=== PATIENT | male | born 1955 | race Caucasian/White ===

== ENCOUNTER 2016-06-28 11:57 | Inpatient (IN) | payer OTHER ==
--- NOTE | ~2016-06-28 | DS ---
Discharge Summary [facility] [address] [place]. [address] NAME: BALWINDER GARY : 57 STATUS : DIS IN PAT#: [id number] AGE: 61 ADM/REG DATE : 06/28/16 MR#: [id number] REPORT SERV DATE: 07/02/16 DICTATED BY: LOVE GIRON DATE: 07/01/16 REPORT STATUS : Draft TRANSCRIBED BY: MODL DATE: 07/01/16 ADMISSION DATE: 06/28/2016 DISCHARGE DATE: 07/01/2016 PRINCIPAL DIAGNOSIS: Venous stasis dermatitis bilaterally with associated cellulitis and streptococcal bacteremia. SECONDARY DIAGNOSES: Acute on chronic congestive heart failure; atrial fibrillation with rapid ventricular response, unresponsive to medical therapy; acute kidney injury; anemia of chronic disease; and chronic low back pain. HISTORY OF PRESENT ILLNESS: Please see my dictation, 06/28/2016. HOSPITAL COURSE: Admitted with severe stasis dermatitis due to the patient's medication regimen in upright positioning. He was placed supine, placed on diuretic drip with excellent diuresis. Erythema and tenderness had improved. He was given antibiotics initially, which we continued as blood culture was positive for Streptococcus. He had complete loss of the epithelial layer, independent of cellulitis. Bacteremia was possible. In the meantime, he had issues with atrial fibrillation with rapid ventricular response, seen by Cardiology. Sotalol had failed, but he was changed this over to amiodarone and actually underwent a DC cardioversion with a transesophageal echocardiography. No vegetations were seen in a BRIE. He was cardioverted successfully. Sotalol was discontinued with amiodarone to replace it. His Lasix drip was also discontinued as the diuresis had improved, and he was transitioned over to Demadex continuing potassium and magnesium. He had PICC line placed and was seen by Infectious Disease regarding his bacteremia. Ceftriaxone had been given here, but it was changed over to Ancef to be given as an outpatient to complete 2 weeks' course of therapy after which, he would follow up with Dr. Tj Medina in 1-[address] Abdoul Fine as scheduled. RSM/FELICIA Love Giron M.D. / [id number] CC: Carmelo Long M.D. Gregory Keith Bruce, M.D.
--- NOTE | ~2016-06-28 | CN ---
Consultation Report [facility] [address] [place]. [address] NAME: BALWINDER COLORADO : 57 STATUS : ADM IN PAT#: [id number] AGE: 61 ADM/REG DATE : 06/28/16 MR#: [id number] REPORT SERV DATE: 06/29/16 DICTATED BY: CELESTINE JONES DATE: 06/28/16 REPORT STATUS : Draft TRANSCRIBED BY: MODL DATE: 06/28/16 CONSULTATION DATE OF CONSULTATION: 06/28/2016 REASON FOR CONSULTATION: This is in regard to atrial fibrillation with rapid ventricular response. HISTORY OF PRESENT ILLNESS: Mr. Colorado is a pleasant 61-year-old gentleman, who sees Dr. Kuldeep Hernandez as his primary balance sheet analyst. He was admitted with complaints of right foot swelling and was noted to be in atrial fibrillation with rapid ventricular response. The patient has a known history of paroxysmal atrial fibrillation and atrial flutter and has been maintained in sinus rhythm on sotalol 80 mg twice a day. His medical history is rather complicated and includes chronic cellulitis of his right and left lower extremities, but does not appear to involve the feet on either side. He has been treated at the [facility]. He is denying any chest pain. He denies profound shortness of breath. He denies PND or orthopnea. PAST MEDICAL HISTORY: 1. Notable for history of coronary artery disease with three-vessel diffuse disease, poor distal targets, not felt to be a good candidate for bypass operation. 2. Paroxysmal atrial fibrillation and atrial flutter, had been maintained on sotalol 80 mg twice a day. 3. Chronic cellulitis involving both lower extremities between his knee and ankle on both sides, treated in the wound center. 4. History of an ischemic cardiomyopathy, ejection fraction of 40%, treated with carvedilol, Lasix, lisinopril. 5. Hypertension, treated with carvedilol and amlodipine. FAMILY HISTORY: Negative for premature coronary artery disease or sudden cardiac . SOCIAL HISTORY: Negative for tobacco or alcohol. REVIEW OF SYSTEMS: As noted above. All other systems reviewed and negative. Note that the patient specifically denies chest pain, PND, orthopnea, pedal edema and denies palpitations. PHYSICAL EXAMINATION: VITAL SIGNS: His blood pressure is 101/60, his pulse is 140, irregularly irregular, in atrial fibrillation, respirations of 16. GENERAL: Well developed, well nourished. HEENT: No icterus. Good dentition. Consultation Report [facility] [address] [place]. [address] NAME: BALWINDER COLORADO : 57 STATUS : ADM IN PAT#: [id number] AGE: 61 ADM/REG DATE : 06/28/16 MR#: [id number] REPORT SERV DATE: 06/29/16 DICTATED BY: CELESTINE JONES DATE: 06/28/16 REPORT STATUS : Draft TRANSCRIBED BY: FELICIA DATE: 06/28/16 NECK: Supple. No masses or thyromegaly LUNGS: Breathing comfortably. No rales or wheezes. CARDIAC: He has a rapid irregularly irregular rhythm. ABD: Soft, nondistended, nontender, no hepatosplenomegaly. EXTREMITIES: He has denuded skin between his knees and ankles and both lower extremities. Very erythematous. His right foot is mildly swollen, nontender. No swelling in his left foot. SKIN: Warm and dry. No visible lesions. MS: Chest wall without deformity, no obvious clavicular fractures. NEURO/PSYCH: Oriented X3. No anxiety or depression. DIAGNOSTIC STUDIES: EKG demonstrates atrial fibrillation with rapid ventricular response, leftward axis. Normal QRS and QT intervals. No evidence for ischemia infarction or chamber hypertrophy. Chest x-ray without pulmonary vascular congestion. IMPRESSION: 1. The patient admitted with complaints of right foot swelling, not clear that this is related to congestive heart failure. His lower extremities appear to be involved with a chronic cellulitis, which has been treated in the wound center. The patient notes that the cellulitis is about the same as it has been in the past. This is being evaluated by the Hospitalist Service. 2. However, it was not certain that the patient has acute on chronic congestive heart failure. He does have a chronic LV systolic dysfunction with ejection fraction noted to be 40%. He is breathing comfortably. He has no PND or orthopnea. His chest x-ray is without pulmonary vascular congestion. He has a baseline creatinine of less than 1 and his current creatinine is over 2 and this potentially could be pre-renal. He was started on an IV Lasix drip. I would recommend checking BNP to see if this is severely elevated. I would consider discontinuing the IV Lasix unless there is clear evidence for acute on chronic congestive heart failure. 3. Atrial fibrillation with rapid ventricular response. He has paroxysmal atrial fibrillation and atrial flutter. We are going to discontinue his sotalol specially in the setting of renal insufficiency. He was started on IV amiodarone. I will also start p.o. amiodarone. I would consider him for cardioversion. His warfarin is subtherapeutic, this is being adjusted with pharmacies help. Further rate control is difficult due to borderline hypotension. Continue the IV amiodarone at this point in time. 4. Coronary artery disease appears to be stable. He does have three-vessel disease that is diffuse with poor distal targets. Continue medical management. 5. Congestive heart failure. As mentioned, it is unclear that he has acute on chronic congestive heart failure. He does receive carvedilol. He does take lisinopril, although this is currently on hold due to his renal insufficiency. 6. Hypertension. This is not an issue at present. In fact the patient's blood pressures have been in borderline hypotensive. Consultation Report [address] [address] NAME: BALWINDER COLORADO : 57 STATUS : ADM IN PAT#: [id number] AGE: 61 ADM/REG DATE : 06/28/16 MR#: [id number] REPORT SERV DATE: 06/29/16 DICTATED BY: CELESTINE JONES DATE: 06/28/16 REPORT STATUS : Draft TRANSCRIBED BY: FELICIA DATE: 06/28/16 /FELICIA Celestine Jones M.D. / [id number] CC: Carmelo Long M.D.
--- NOTE | ~2016-06-28 | CN ---
Consultation Report [facility] [address] [place]. [address] NAME: BALWINDER GARY : 57 STATUS : ADM IN [facility]#: [id number] AGE: 61 ADM/REG DATE : 06/28/16 MR#: [id number] REPORT SERV DATE: 07/01/16 DICTATED BY: HASRHIL MESSER DATE: 07/01/16 REPORT STATUS : Draft TRANSCRIBED BY: FELICIA DATE: 07/01/16 INFECTIOUS DISEASE CONSULT DATE OF CONSULTATION: REFERRING PHYSICIAN: Cesar Stevenson M.D. REASON FOR REFERRAL: Evaluation and treatment of Strep bacteremia associated with cellulitis. HISTORY OF PRESENT ILLNESS: The patient is a 61-year-old male with a history of coronary artery disease; congestive heart failure; atrial fibrillation; hypertension; and he has chronic venous stasis; it is quite severe in both lower extremities. He has a long history of getting bullae venous stasis ulcers and almost continuous weeping, which has interfered with his ability to use wrappings for compression at home. Per history, he has apparently been sitting and he was sleeping in a chair all day and not keeping his legs elevated because of the difficulty with breathing while he was trying to lay flat. He came in on the , was started on Rocephin. His blood cultures subsequently were positive, one of two for Strep, but still not definitively identified, but either group A beta-hemolytic strep or non-A, non-B beta-hemolytic Strep. He is doing better on Rocephin and bed rest here. PAST MEDICAL HISTORY: Otherwise unremarkable. MEDICATIONS: He is on Rocephin. ALLERGIES: HE HAS NO KNOWN ANTIMICROBIAL ALLERGIES. SOCIAL HISTORY: He lives at home with his father. He is single, nonsmoker. No history of alcohol or substance abuse. FAMILY HISTORY: Noncontributory. PHYSICAL EXAMINATION: GENERAL: Nontoxic adult male, in no acute distress. He is alert and oriented x3. VITAL SIGNS: His temperature here is presently 97.4; it has been normal since arrival. Present pulse 77, respirations 16, blood pressure 129/71, weight 129 kg. HEENT: Sclerae clear. No oral lesions. LUNGS: Clear. HEART: Regular rate and rhythm. ABDOMEN: Obese, soft, and nontender. Positive bowel sounds. EXTREMITIES: Both lower extremities are swollen with superficial skin breakdown, shallow ulcerations weeping and warmth and redness, so there is evidence that swelling has improved since he got here. Consultation Report [facility] [address] [place]. [address] NAME: BALWINDER GARY : 57 STATUS : ADM IN [facility]#: [id number] AGE: 61 ADM/REG DATE : 06/28/16 MR#: [id number] REPORT SERV DATE: 07/01/16 DICTATED BY: HARSHIL MESSER DATE: 07/01/16 REPORT STATUS : Draft TRANSCRIBED BY: FELICIA DATE: 07/01/16 LABORATORY DATA: His white count 14.7 when he was admitted, now 10.9, hematocrit 30.6, and platelets 277. BUN and creatinine are 44 and 1.27. IMPRESSION: Chronic venous stasis that has led to severe cellulitis that in turn led to sepsis with a beta-hemolytic Strep; doing better on antibiotics and with legs elevated. RECOMMENDATIONS: 1. I feel it could be changed to Ancef for best coverage of this and narrow the spectrum. 2. I think home IV therapy is reasonable to do now since he otherwise seems to be better, so we will write orders for that and he already has a PICC line. 3. Discuss with the patient at some length today, the need to use elevation to get the swelling down because nothing else really work well until such time, he gets better and can have compression devices of some kind. In the meantime, he needs to be on bed rest, I feel [id number] for least seven days and intermittently during the day and after that if he is doing better. I will follow him up in the office if he does leave today. I appreciate very much your consulting on this patient. BLADIMIR Harshil Messer M.D. / [id number] CC: Carmelo Logn M.D.
--- NOTE | ~2016-06-28 | OP ---
Record Of Operation [facility] [address] [place]. [address] NAME: BALWINDER GARY : 57 STATUS : ADM IN [facility]#: [id number] AGE: 61 ADM/REG DATE : 06/28/16 MR#: [id number] REPORT SERV DATE: 06/30/16 DICTATED BY: JANUSZ WHITLEY DATE: 06/30/16 REPORT STATUS : Draft TRANSCRIBED BY: MODL DATE: 06/30/16 DATE OF PROCEDURE: 06/30/2016 PROCEDURE TYPE: Elective transesophageal echocardiogram with cardioversion. INDICATION: Atrial fibrillation. PROCEDURE DESCRIPTION: All questions were answered and informed consent was obtained. Upon successful sedation per Anesthesia, the transesophageal probe was inserted without complication. Salient echocardiographic windows were obtained, with particular attention to the left atrial appendage. Once the left atrial appendage was cleared of thrombus, the patient was shocked with 200 joules x1 and converted to sinus rhythm. There were no complications from the procedure. ECHOCARDIOGRAPHIC FINDINGS: 1. Normal LV size with mildly decreased LV systolic function, estimated ejection fraction 45%. 2. Mildly enlarged right ventricle with mildly decreased systolic function. 3. Biatrial enlargement. 4. No evidence of PFO or ASD on color Doppler assessment. 5. No thrombus in the left atrial appendage at the time of the study. 6. Normal Doppler velocities in the left atrial appendage (peak velocity 80 cm/sec). 7. Color Doppler assessment with mild mitral and tricuspid regurgitation. VR/MODL Janusz Whitley MD / [id number] CC: Carmelo Long M.D.
--- NOTE | ~2016-06-28 | PUL ---
[facility] [id number] [place]. [address] NAME: BALWINDER GARY : 57 STATUS : ADM IN PAT#: [id number] AGE: 61 ADM/REG DATE : 06/28/16 MR#: [id number] REPORT SERV DATE: 06/29/16 DICTATED BY: GRUPO BALDERRAMA DATE: 06/29/16 REPORT STATUS : Draft TRANSCRIBED BY: MODL DATE: 06/29/16 PULMONARY FUNCTION TEST PROCEDURE: Nocturnal oximetry study. DESCRIPTION: This is a nocturnal oximetry study performed on room air 06/28/2016 starting at 11:09 p.m. ending 06/29/2016 at 05:33 a.m. Recording time 6 hours 23 minutes 34 seconds. Average heart rate 127 with a low of 79 and a high of 187. Average O2 saturation 93.7% with a low of 76%. Time below 88% was 7 minutes 18 seconds. Oxygen desaturation index was 21.8. IMPRESSION: This is an abnormal oximetry study showing oxygen desaturation down to a low of 76% and enough time less than 88% and this should be evaluated. If sleep apnea is a concern given the elevated DOMINGA then outpatient sleep study is needed. If sleep apnea has been ruled out, the patient has other cardiorespiratory issues to explain nocturnal oximetry study then this should be treated, but the patient should qualify for nighttime oxygen. CEP/FELICIA Grupo Balderrama DO / [id number] CC: Carmelo Long M.D.
--- NOTE | ~2016-06-28 | HP ---
History And Physical [facility] [id number] [facility]. [address] NAME: BALWINDER COLORADO : 57 STATUS : ADM IN [facility]#: [id number] AGE: 61 ADM/REG DATE : 06/28/16 MR#: [id number] REPORT SERV DATE: 06/29/16 DICTATED BY: LOVE GIRON DATE: 06/28/16 REPORT STATUS : Draft TRANSCRIBED BY: MODL DATE: 06/28/16 DATE OF ADMISSION: 06/28/2016 REASON FOR ADMISSION: Acute severe venous stasis dermatitis with acute on chronic systolic congestive heart failure, atrial fibrillation with rapid ventricular response. HISTORY OF PRESENT ILLNESS: Mr. Colorado is a 61-year-old male with coronary artery disease, systolic congestive heart failure with an ejection fraction of 40%, atrial fibrillation, hypertension, presents to the emergency department today with severe bilateral swelling of his lower extremities. He had been on Augmentin therapy and the legs remained red, swollen, and weeping. He was advised to return to the emergency department by Home Health. The patient says that these have been going on over six months. He has been on furosemide without benefit. He has pain in his limbs, but no fevers, no swelling elsewhere. He does have chronic shortness of breath and that limits his ability to lay down flat, in fact he sleeps completely upright in a chair, not elevating his legs, which has worsened the problem. He does however have home health for wraps, but these wraps have now become saturated. The patient does acknowledge diminished urinary output. Bowel movements have been okay. He denies any coughing or wheezing. No chest or palpitations. No nausea or vomiting. Chronic low back pain also limits his ability to lay down, but no neurological deficits or radicular symptoms. The patient walks okay with a cane. He denies history of sleep apnea. Remainder of review of systems are negative. PAST MEDICAL HISTORY: As mentioned above. MEDICATIONS: Include: 1. Coumadin. 2. Norvasc. 3. Lipitor. 4. Zestril. 5. Betapace. 6. Coreg. 7. Lasix. ALLERGIES: NO ALLERGIES. FAMILY HISTORY: Remarkable that he lives with his brother who is healthy. SOCIAL HISTORY: The patient has no tobacco, alcohol, or drugs. PHYSICAL EXAMINATION: VITAL SIGNS: On presentation, blood pressure 108/59, pulse 90, respirations 16, afebrile, 98%. GENERAL: Awake, alert, and oriented x3. No apparent distress. HEENT: Pupils equal, round, and reactive to light. Extraocular movements are intact. No carotid deficits. Moist mucous membranes. He did have somewhat crowded oropharynx. NECK: Revealed no jugular venous distention, carotid bruits, lymphadenopathy, or goiter. History And Physical [address] [address] NAME: BALWINDER COLORADO : 57 STATUS : ADM IN PAT#: [id number] AGE: 61 ADM/REG DATE : 06/28/16 MR#: [id number] REPORT SERV DATE: 06/29/16 DICTATED BY: LOVE GIRON DATE: 06/28/16 REPORT STATUS : Draft TRANSCRIBED BY: FELICIA DATE: 06/28/16 CARDIAC: Tachycardic. Irregular rate and rhythm. No murmurs, gallops, or rubs. LUNGS: Clear to auscultation bilaterally. Good excursion. ABDOMEN: Soft and nontender. Bowel sounds normoactive. EXTREMITIES: 4+ edema with severe erythema up to the mid shins. He had compete deepithelialization of his lower extremities with weeping of clear fluid throughout. The erythema itself was cool. He had good pulses and capillary refill distally. SKIN: Otherwise warm and dry. PSYCHIATRIC: He is appropriate. LABORATORY EVALUATION: Sodium 144.8, chloride 110, bicarb 21, BUN 83, creatinine 2.0, and glucose 184. White count 10,000, H and H , and platelets 533. Chest x-ray shows no apparent disease, cardiomegaly, EKG, atrial fibrillation, rapid ventricular response, 145 beats per minute. ASSESSMENT/PLAN: 1. Bilateral stasis dermatitis due to congestive heart failure with preserved ejection fraction. Also due to his upright posture with refusal to elevate is legs with amlodipine which is worse in his edema and Lasix failure which is often seen in right heart failure. He should elevate his legs. Diuretic infusion will be given. We will discontinue dihydropyridine calcium channel blockers. Change his JUDIT inhibitor, hydralazine, for improved renal vasodilation and optimize his fluid output. We should rule out venous thromboembolic disease a contributor to his diuretics, although he is anticoagulated adequately on Coumadin. 2. Atrial fibrillation with rapid ventricular response. Blood pressure is a little bit borderline, we will try a Cardizem drip, but this may be not tolerated, amiodarone infusion may be necessary. We will notify Dr. Fine regarding possibility of D/C cardioversion. 3. Acute kidney injury on chronic kidney disease. Likely has renal edema too. We anticipate some improvement with diuretics and holding his Zestril. 4. Anemia, possibly due to chronic kidney disease. We will check indices, guaiacs, etc., while on Coumadin. 5. Low back pain. We will try to treat his pain more effectively, so the patient will lay supine for diuresis. RSM/FELICIA Love Giron M.D. / [id number] CC: History And Physical [address] [address] NAME: BALWINDER COLORADO : 57 STATUS : ADM IN [facility]#: [id number] AGE: 61 ADM/REG DATE : 06/28/16 MR#: [id number] REPORT SERV DATE: 06/29/16 DICTATED BY: LOVE GIRON DATE: 06/28/16 REPORT STATUS : Draft TRANSCRIBED BY: MODBill DATE: 06/28/16 Carmelo Long M.D. Gregory Keith Bruce, M.D.
[2016-06-28 11:50] LABS: BASOPHILS 0.2 %; BASOPHILS ABSOLUTE 0.03 10/3/uL (0.0-0.16); EOSINOPHILS 0.6 %; EOSINOPHILS ABSOLUTE 0.09 10/3/uL (0.0-0.53); ER CBC TAT 0 Hrs 05 Mins; HEMOGLOBIN 10.4 g/dL (13.6-17.8); IMMATURE GRANULOCYTES 1.4 %; LYMPHOCYTES 7.3 %; LYMPHOCYTES ABSOLUTE 1.07 10/3/uL (0.67-4.30); MEAN CORPUS HGB CONC 31.9 g/dL (32.0-36.0); MEAN CORPUSCULAR HEMOGLOB 27.4 pg (26.0-34.0); MONOCYTES 2.8 %; MONOCYTES ABSOLUTE 0.41 10/3/uL (0.21-1.20); NEUTROPHILS 87.7 %; NEUTROPHILS ABSOLUTE 12.89 10/3/uL (2.02-8.40); PLATELET COUNT 323 10/3/uL (150-400); WHITE BLOOD CELLS 14.7 10/3/uL (4.5-10.5)
[2016-06-28 11:51] LABS: HEMATOCRIT 32.6 % (40.0-51.0); IMMATURE GRANULOCYTES ABSOLUTE 0.21 10/3/uL (0.0-0.11); MANUAL DIFF NO %; RED CELL COUNT 3.79 10/6/uL (4.7-6.1)
[~2016-06-28 11:57] MED LIST: ASABAYER PO; BACTROINT TOP; BENICAR HCT1 TA1 PO; BETAPACE80 PO; C5 PO; CIP5 PO; CLARITD24H PO; COREG25 PO; HALF81 PO; HYDROCHLOROT25 MG PO; JANTOVEN5 MG PO; JANTOVEN6 MG PO; KLOR-CON M2020 MEQ PO; L40 PO; LIPITOR20 PO; MAGOX4 PO; NORV10 PO; PRIN5 PO; ZOCOR20 PO
[2016-06-28 12:04] LABS: ALBUMIN 2.4 G/DL (3.5-5.0); CALCIUM, SERUM 8.5 MG/DL (8.5-10.4); CHLORIDE, SERUM 110 MMOL/L (96-112); CO2 (CARBON DIOXIDE) 21 MMOL/L (24-34); CREATININE 2.02 MG/DL (0.70-1.30); GFR AFRICAN AMERICAN 40 ML/MIN (>=60); GFR NON AFRICAN AMERICAN 35 ML/MIN (>=60); SGOT(AST) 12 U/L (5-40); SGPT(ALT) 34 U/L (5-65); SODIUM, SERUM 140 MMOL/L (135-148)
[2016-06-28 12:05] LABS: A/G RATIO 0.5 (0.7-1.9); ALKALINE PHOSPHATASE 114 U/L (45-117); BUN (BLOOD UREA NITROGEN) 83 MG/DL (6-23); GLOBULIN 4.6 G/DL (2.5-4.1); GLUCOSE, SERUM 184 MG/DL (60-99); POTASSIUM, SERUM 4.8 MMOL/L (3.5-5.3); TOTAL BILIRUBIN 0.2 MG/DL (0-1.2)
[2016-06-28 12:08] LABS: ER DIFF TAT 0 Hrs 23 Mins; LYMPHOCYTES 4 %; LYMPHOCYTES ABSOLUTE (CALC) 0.59 10/3/uL (0.67-4.30); MONOCYTES 8 %; MONOCYTES ABSOLUTE (CALC) 1.18 10/3/uL (0.21-1.20); NEUTROPHILS ABSOLUTE (CALC) 12.94 10/3/uL (2.02-8.40); OVALOCYTES 1+ (3-10/OIF) (0-2/OIF); PLATELET ESTIMATE ADQ (ADEQUATE); SEGMENTED NEUTROPHIL (0) 88 %; TOTAL NUCLEATED CELLS 100
[2016-06-28 12:55] LABS: TROPONIN I <0.02 NG/ML (<0.05)
[2016-06-28] MEDS ORDERED: JANTOVEN5 MG PO (13:22)
[2016-06-28] MEDS ORDERED: LIPITOR20 PO (13:23)
[2016-06-28] MEDS ORDERED: BETAPACE80 PO (13:23)
[2016-06-28] MEDS ORDERED: COREG25 PO (13:23)
[2016-06-28] MEDS ORDERED: ZESTRIL5 MG PO (13:23)
[2016-06-28] MEDS ORDERED: NORV10 PO (13:23)
[2016-06-28 13:26] LABS: INTERNATIONAL NORMAL RATI 1.7 UNITS (-); PARTIAL THROMBO TIME 35.4 SEC (22.5-37.2); PROTIME (NOT ORD) 19.8 SEC (12.0-14.5)
[2016-06-28] MEDS ORDERED: L80 PO (13:27)
[2016-06-28 18:49] LABS: % IRON SAT 13 % (20-50); FERRITIN 296 NG/ML (26-388); IRON BINDING CAPACITY 245 MCG/DL (250-450); IRON, SERUM 32 MCG/DL (35-150)
[2016-06-28 19:46] LABS: RETICULOCYTE COUNT 1.2 % (0.5-2.9); RETICULOCYTE COUNT ABSOLUTE 44.7 10/3/uL (20.2-119.8)
[2016-06-29 07:49] LABS: INTERNATIONAL NORMAL RATI 1.9 UNITS (-); PROTIME (NOT ORD) 21.5 SEC (12.0-14.5)
[2016-06-29 07:55] LABS: CALCIUM, SERUM 8.5 MG/DL (8.5-10.4); CHLORIDE, SERUM 105 MMOL/L (96-112); CO2 (CARBON DIOXIDE) 23 MMOL/L (24-34); CREATININE 1.55 MG/DL (0.70-1.30); GFR AFRICAN AMERICAN 56 ML/MIN (>=60); GFR NON AFRICAN AMERICAN 48 ML/MIN (>=60); SODIUM, SERUM 139 MMOL/L (135-148)
[2016-06-29 07:58] LABS: BUN (BLOOD UREA NITROGEN) 79 MG/DL (6-23); GLUCOSE, SERUM 132 MG/DL (60-99); POTASSIUM, SERUM 3.3 MMOL/L (3.5-5.3)
[2016-06-30 06:27] LABS: BASOPHILS 0.2 %; BASOPHILS ABSOLUTE 0.02 10/3/uL (0.0-0.16); EOSINOPHILS ABSOLUTE 0.12 10/3/uL (0.0-0.53); HEMATOCRIT 29.6 % (40.0-51.0); HEMOGLOBIN 9.6 g/dL (13.6-17.8); IMMATURE GRANULOCYTES 1.1 %; IMMATURE GRANULOCYTES ABSOLUTE 0.13 10/3/uL (0.0-0.11); LYMPHOCYTES 5.4 %; LYMPHOCYTES ABSOLUTE 0.66 10/3/uL (0.67-4.30); MEAN CORPUS HGB CONC 32.4 g/dL (32.0-36.0); MEAN CORPUSCULAR HEMOGLOB 27.4 pg (26.0-34.0); MEAN CORPUSCULAR VOLUME 84.6 fL (80-100); MEAN PLATELET VOLUME 9.2 fL (9.2-13.0); MONOCYTES 5.8 %; MONOCYTES ABSOLUTE 0.71 10/3/uL (0.21-1.20); NEUTROPHILS 86.5 %; NEUTROPHILS ABSOLUTE 10.66 10/3/uL (2.02-8.40); PLATELET COUNT 274 10/3/uL (150-400); WHITE BLOOD CELLS 12.3 10/3/uL (4.5-10.5)
[2016-06-30 06:28] LABS: MANUAL DIFF NO %
[2016-06-30 06:33] LABS: INTERNATIONAL NORMAL RATI 1.7 UNITS (-); PROTIME (NOT ORD) 19.6 SEC (12.0-14.5)
[2016-06-30 06:44] LABS: CALCIUM, SERUM 8.6 MG/DL (8.5-10.4); CHLORIDE, SERUM 104 MMOL/L (96-112); CO2 (CARBON DIOXIDE) 24 MMOL/L (24-34); CREATININE 1.28 MG/DL (0.70-1.30); GFR AFRICAN AMERICAN 70 ML/MIN (>=60); GFR NON AFRICAN AMERICAN 60 ML/MIN (>=60); SODIUM, SERUM 135 MMOL/L (135-148)
[2016-06-30 06:46] LABS: BUN (BLOOD UREA NITROGEN) 59 MG/DL (6-23); GLUCOSE, SERUM 164 MG/DL (60-99); POTASSIUM, SERUM 4.7 MMOL/L (3.5-5.3)
[2016-06-30 08:38] LABS: SED RATE 97 MM/HR (0-15)
[2016-07-01 05:07] LABS: BASOPHILS 0.3 %; BASOPHILS ABSOLUTE 0.03 10/3/uL (0.0-0.16); EOSINOPHILS 2.2 %; EOSINOPHILS ABSOLUTE 0.24 10/3/uL (0.0-0.53); HEMATOCRIT 30.6 % (40.0-51.0); HEMOGLOBIN 9.8 g/dL (13.6-17.8); IMMATURE GRANULOCYTES 1.9 %; IMMATURE GRANULOCYTES ABSOLUTE 0.21 10/3/uL (0.0-0.11); LYMPHOCYTES 6.3 %; LYMPHOCYTES ABSOLUTE 0.69 10/3/uL (0.67-4.30); MEAN CORPUSCULAR HEMOGLOB 27.6 pg (26.0-34.0); MEAN CORPUSCULAR VOLUME 86.2 fL (80-100); MEAN PLATELET VOLUME 9.7 fL (9.2-13.0); MONOCYTES 5.8 %; MONOCYTES ABSOLUTE 0.63 10/3/uL (0.21-1.20); NEUTROPHILS 83.5 %; NEUTROPHILS ABSOLUTE 9.08 10/3/uL (2.02-8.40); PLATELET COUNT 277 10/3/uL (150-400); RBC DISTRIBUTION WIDTH 15.7 % (12.0-16.0); RED CELL COUNT 3.55 10/6/uL (4.7-6.1); WHITE BLOOD CELLS 10.9 10/3/uL (4.5-10.5)
[2016-07-01 05:08] LABS: MANUAL DIFF NO %
[2016-07-01 05:13] LABS: INTERNATIONAL NORMAL RATI 1.8 UNITS (-); PROTIME (NOT ORD) 20.4 SEC (12.0-14.5)
[2016-07-01 05:20] LABS: CALCIUM, SERUM 8.5 MG/DL (8.5-10.4); CHLORIDE, SERUM 105 MMOL/L (96-112); CO2 (CARBON DIOXIDE) 24 MMOL/L (24-34); CREATININE 1.27 MG/DL (0.70-1.30); GFR AFRICAN AMERICAN 71 ML/MIN (>=60); GFR NON AFRICAN AMERICAN 61 ML/MIN (>=60); POTASSIUM, SERUM 4.7 MMOL/L (3.5-5.3); SODIUM, SERUM 137 MMOL/L (135-148)
[2016-07-01 05:26] LABS: BUN (BLOOD UREA NITROGEN) 44 MG/DL (6-23); GLUCOSE, SERUM 127 MG/DL (60-99)
[2016-07-01] MEDS ORDERED: PACERONE400 MG PO (16:39)
[2016-07-01] MEDS ORDERED: ROCEPH IV (16:41)
[2016-07-01] MEDS ORDERED: ISORDIL10 PO (16:42)
[2016-07-01] MEDS ORDERED: MAGOX4 PO (16:43)
[2016-07-01] MEDS ORDERED: KLOR-CON 1010 MEQ PO (16:45)
[2016-07-01] MEDS ORDERED: SILVADENE CREAM PO (16:47)
[2016-07-01] MEDS ORDERED: APRES25 PO (16:48)
[2016-07-01] MEDS ORDERED: DEMA20 PO (16:54)
== END 2016-07-01 19:09 | disposition home health service (06) | DRG 291 ==
LOC: ER 11:57 → 7NO 14:41
PROVIDERS: Emergency Medicine; Internal Medicine; Internal Medicine Cardiovascular Disease
PROC: 02HV33Z Insertion of Infusion Device into Superior Vena Cava, Percutaneous Approach (ICD-10-PCS; principal; 2016-06-30)
PROC: 4A02X4A Measurement of Cardiac Electrical Activity, Guidance, External Approach (ICD-10-PCS; 2016-06-30)
PROC: B246ZZ4 Ultrasonography of Right and Left Heart, Transesophageal (ICD-10-PCS; 2016-06-30)
PROC: 5A2204Z Restoration of Cardiac Rhythm, Single (ICD-10-PCS; 2016-06-30)
DX: I13.0 Hypertensive heart and chronic kidney disease with heart failure and stage 1 through stage 4 chronic kidney disease, or unspecified chronic kidney disease (principal); I50.23 Acute on chronic systolic (congestive) heart failure; N17.9 Acute kidney failure, unspecified; L03.115 Cellulitis of right lower limb; R78.81 Bacteremia; L03.116 Cellulitis of left lower limb; Z79.01 Long term (current) use of anticoagulants; I48.92 Unspecified atrial flutter; N18.3 Chronic kidney disease, stage 3 (moderate); I08.1 Rheumatic disorders of both mitral and tricuspid valves; I87.2 Venous insufficiency (chronic) (peripheral); I48.0 Paroxysmal atrial fibrillation; I25.10 Atherosclerotic heart disease of native coronary artery without angina pectoris; M54.5 Low back pain; D64.9 Anemia, unspecified; I25.5 Ischemic cardiomyopathy; B95.5 Unspecified streptococcus as the cause of diseases classified elsewhere
CPT/HCPCS: 36569; 71010; 80048; 80053; 82728; 83540; 83550; 83605; 83735; 83880; 84132; 84484; 85025; 85045; 85610; 85652; 85730; 87040; 87077; 87150; 87186; 92960; 93005; 93312; 93320; 93325; 93970; 94762; 96374; 96375; 96376; 99291; A9270-GY; C1751; J0282; J0690; J1940

== ENCOUNTER 2016-07-15 07:13 | Inpatient (IN) | payer OTHER ==
--- NOTE | ~2016-07-15 | HP ---
History And Physical [facility] [place] [id number] [place]. [address] NAME: BALWINDER GARY : 57 STATUS : ADM IN [facility]#: [id number] AGE: 61 ADM/REG DATE : 07/15/16 MR#: [id number] REPORT SERV DATE: 07/15/16 DICTATED BY: BALWINDER GIBSON DATE: 07/15/16 REPORT STATUS : Draft TRANSCRIBED BY: MODL DATE: 07/15/16 DATE OF ADMISSION: 07/15/2016 REASON FOR ADMISSION: Atrial fibrillation with rapid ventricular response or exacerbation of congestive heart failure. HISTORY OF PRESENT ILLNESS: This is a 61-year-old white male who used to work at [employer] when it was [employer] in the past. He is living at home with his father now after having lived with his mother for many years. He has known systolic congestive heart failure with ejection fraction of 40% or less. He had atrial fibrillation during a prior hospitalization, 06/28/2016 to 07/02/2016. He was seen in our hospital by Dr. Abdoul Fnie and cardioverted and placed on amiodarone, discharged with normal sinus rhythm. He came back with increasing shortness of breath and atrial fibrillation with rapid ventricular response. He has taken only two doses of his amiodarone since discharge. He also had strep septicemia due to his leg ulcers. He was continued on IV antibiotics as an outpatient with home health. He cannot remember the home health agency that helped him, but he was on IV antibiotics until around 07/09/2016, which would have been just five days ago. He denies any fever, chills, night sweats now. He does not get out of bed very much, lays in bed with his legs elevated. He cannot recount his home medications. PAST MEDICAL HISTORY: He has congestive heart failure. He is on Coumadin at home. Medications may include Norvasc, Lipitor, Zestril, Betapace, Coreg, and Lasix, though they were not enumerated on the discharge summary and are being collected and identified now, though I am not completely sure he has been taking the medication. FAMILY HISTORY: He lives with his father on [address] in [place]. He grew up there. He had two brothers, who are alive and well. Father is in fairly good health. His mother of bone cancer. SOCIAL HISTORY: He went to [employer], worked in the [employer] department of [employer] in [facility] over many years. He had been transferred to [employer] and worked at the [employer]. He is basically house-bound and had walked with a cane in the past, but has not done so well with that recently. He is not . He does not take any alcohol or drugs. He attended [employer] [facility], but has not been there in a long time. 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 REVIEW OF SYSTEMS: He has had no melena, hematemesis, fits, seizures, nausea, vomiting, diarrhea. Swelling of lower extremities, increasing shortness of breath. Claims that he is taking his medicine, though modifies this and I have questions regarding this. His leg ulcers were improving, nearly healed by the time he was discharged he says, but it History And Physical [address] [place]. [address] NAME: BALWINDER GARY : 57 STATUS : ADM IN [facility]#: [id number] AGE: 61 ADM/REG DATE : 07/15/16 MR#: [id number] REPORT SERV DATE: 07/15/16 DICTATED BY: BALWINDER GIBSON DATE: 07/15/16 REPORT STATUS : Draft TRANSCRIBED BY: FELICIA DATE: 07/15/16 had gotten worse since he is home, however, with the home health nurse that seems improbable since he has only been off his IV antibiotics for four days. The remainder of the review of systems is negative. MEDICATIONS: Listed are as follows: Amiodarone 400 mg p.o. b.i.d.; atorvastatin 20 mg p.o. daily, carvedilol 25 mg p.o. b.i.d., Tylenol PM at nighttime as needed, hydralazine 50 mg p.o. b.i.d., isosorbide dinitrate 10 mg p.o. b.i.d., magnesium oxide 400 mg p.o. daily, Afrin nasal spray p.r.n., potassium chloride 10 mEq, Demadex 20 mg p.o. daily and p.r.n. swelling, Silvadene cream to lower legs, and warfarin. PHYSICAL EXAMINATION: GENERAL: A morbidly obese white male, in no acute distress. VITAL SIGNS: His blood pressure is 113/62 with a heart rate of 127, respiratory rate 22, oxygen saturation 93%. HEENT: EOMI. Sclerae clear. Conjunctivae pink. NECK: No bruit. No JVD. CHEST: Clear to A and P. HEART: Irregular rate and rapid. ABDOMEN: Soft, obese, nontender. Bowel sounds positive. He has flank edema up to the level of shoulder blades. EXTREMITIES: 3+ pitting edema bilaterally. He has stasis changes to the lower extremities. Ulcers were recently dressed and not undressed. There is some bloody drainage through the dressing on the right side. Anterior lateral. NEUROLOGIC: He withdraws to plantar stimulation. Nurse'S Aides Teacher is symmetric bilaterally. Coordination intact. Hearing is intact. He is able to give history, though is evasive and tangential. Speech is normal, cogent, and goal directed. LYMPHATICS: There is no adenopathy palpable. SKIN: Redness and heat in the lower extremities bilaterally. LABORATORY: Hemoglobin 10.6, hematocrit 36, white count 8.8, platelets 270,000. BNP was 1558. Sodium 142, potassium 3.0, chloride 103, CO2 32, creatinine 1.19, BUN 24, glucose 134, calcium 8.4. Lactate level 1.1. His pro time and chest x-ray have not been checked yet. ASSESSMENT: 1. Atrial fibrillation with rapid ventricular response. He has not taken his amiodarone very much saying he could not get from a pharmacy at first, we will restart. We will restart the carvedilol as well, and see if we can get him off the IV Cardizem drip. 2. Anasarca. I am not sure of his compliance with the torsemide. 3. Morbid obesity. 4. Possible obstructive sleep apnea. He does have elevated CO2. Suspicious for obesity, hypoventilation syndrome, or obstructive sleep apnea, which may be causing a right- sided heart failure and peripheral edema. 5. Systolic congestive heart failure with ejection fraction of 40% prior to the last echocardiogram. He had nocturnal oximetry study read by Dr. Balderrama that showed a low History And Physical [address] [address] NAME: BALWINDER GARY DOB: [birth year] STATUS : ADM IN PAT#: [id number] AGE: 61 ADM/REG DATE : 07/15/16 MR#: [id number] REPORT SERV DATE: 07/15/16 DICTATED BY: BALWINDER GIBSON DATE: 07/15/16 REPORT STATUS : Draft TRANSCRIBED BY: MODL DATE: 07/15/16 oxygen saturation of 76 with enough time less than 88% that this needed a polysomnogram was his recommendation. He suggested that he did qualify for nocturnal oxygen on the basis of that test alone. 6. Transesophageal echocardiogram prior to cardioversion is not able to be viewed to confirm our ejection fraction. 7. Leg ulcers. 8. Stasis dermatitis. 9. Cellulitis, lower extremities. 10.Medication noncompliance. After discussion with the patient, he does not wish to be intubated, ventilated, or have chest compressions applied in the event of cardiac arrest in the face of a natural occurring. We will comply with this issue. He will not use a diuretic drip at this point, we will plan to use intermittent Lasix dosing at 80 mg every eight hours for the first 24 hours, and just after that for appropriate diuresis, restart amiodarone, taper the Cardizem drip once the heart rate is under control with oral medications. ADDENDUM: Dr. Medina does not take the patient's [place] Medicaid, therefore he cannot follow up with Dr. Medina, he says, and therefore consider a referral to [facility] in [facility] at the time of discharge. MORALES/FELICIA Balwinder Gibson M.D. / [id number] CC: Carmelo Long M.D. J. Scott Sherrer, M.D.
--- NOTE | ~2016-07-15 | DS ---
Discharge Summary [facility] [address] [place]. [address] NAME: BALWINDER GARY : 57 STATUS : DIS IN PAT#: [id number] AGE: 61 ADM/REG DATE : 07/15/16 MR#: [id number] REPORT SERV DATE: 07/20/16 DICTATED BY: ABHILASH POMPA DATE: 07/17/16 REPORT STATUS : Draft TRANSCRIBED BY: MODL DATE: 07/17/16 ADMISSION DATE: 07/15/2016 DISCHARGE DATE: 07/17/2016 SUMMARY Brief summary of response to the rapid response on this patient. The date that rapid response was called on this patient is 07/17/2016 and the time that it was called was around 7:20 a.m. I am responding to the rapid response called on this patient and trying to summarize the minutes that was spent in rapid response which finally led to of patient, pronouncing the patient at 8:20 a.m. The patient apparently went bradycardic and was found to be in asystole, and hence, the rapid response was called. I ordered for epinephrine and atropine on this patient, and after the appropriate number of doses, the patient did have a pulse and his heart rate came back, however, in the low 100s. The patient had chronic atrial fibrillation and was in fact admitted with atrial fibrillation with rapid ventricular response rate, acute congestive heart failure. The patient also had a history of chronic hypercapnic hypoxic respiratory failure also. The patient had been on a Cardizem drip. By the time I arrived, Cardizem had been stopped. When the patient's pulse started coming back and he was being bagged, he had a large amount of vomitus and this episode triggered aspiration in the patient most likely. After this, suctioning revealed brownish liquid that was being suctioned, and as the patient's wishes were DO NOT INTUBATE, we continued to bag him. However, the patient's response was not there. After bagging him for a few more minutes, there was more vomitus and more suctioning and the patient probably aspirated again. At this point, as there was some thrashing about from the patient's side as a response, we gave him Ativan 1 mg and then I ordered Ativan 1 to 2 mg every two hours to keep the patient comfortable and then also ordered morphine 4 mg x1 dose stat. The patient calmed down after this, but however, the bagging did not retrieve the patient's breathing or respirations. I was called to the patient's bedside around 8:20 a.m. to pronounce the patient. I examined the patient again at bedside at 8:20 a.m. and found that he was unresponsive. His pupils were dilated and fixed and not responsive to light, and no corneal reflexes were present. CARDIOVASCULAR SYSTEM: There were no heart sounds appreciated. RESPIRATORY SYSTEM: There were no respiratory sounds audible. Hence, the patient was pronounced at 8:20 a.m. on 07/17/2016. Discharge Summary [address] [address] NAME: BALWINDER GARY : 57 STATUS : DIS IN PAT#: [id number] AGE: 61 ADM/REG DATE : 07/15/16 MR#: [id number] REPORT SERV DATE: 07/20/16 DICTATED BY: ABHILASH POMPA DATE: 07/17/16 REPORT STATUS : Draft TRANSCRIBED BY: FELICIA DATE: 07/17/16 RRA/FELICIA Abhilash Pompa M.D. / [id number] CC: MD Cesar Cavazos M.D.
--- NOTE | ~2016-07-15 | CN ---
Consultation Report [facility] [address] [place]. [address] NAME: BALWINDER COLORADO : 57 STATUS : ADM IN PAT#: [id number] AGE: 61 ADM/REG DATE : 07/15/16 MR#: [id number] REPORT SERV DATE: 07/15/16 DICTATED BY: JAYCOB ALMAGUER DATE: 07/15/16 REPORT STATUS : Draft TRANSCRIBED BY: MODL DATE: 07/15/16 CARDIOLOGY CONSULTATION DATE OF CONSULTATION: 07/15/2016 REASON FOR CONSULTATION: Atrial fibrillation. HISTORY OF PRESENT ILLNESS: Mr. Colorado is a very pleasant 61-year-old male we have been asked to see by the Hospitalist Service for management of recurrent atrial fibrillation with tachycardia. The patient has a cardiac history notable for advanced coronary heart disease with prior CABG and ischemic cardiomyopathy with mild LV dysfunction and symptomatic heart failure, and paroxysmal atrial fibrillation. He was hospitalized just two weeks ago with atrial fibrillation, cellulitis, and heart failure. During that time, his antiarrhythmic regimen was transitioned from sotalol to amiodarone and he underwent successful cardioversion. He was discharged on amiodarone as well as Coreg for rate control. Since discharge, he states that he has had progressive weakness at home. He states that he was unable to get his amiodarone filled until approximately five days ago but has been taking his other medications. He thinks that he transitioned back in atrial fibrillation two days ago based on increase in weakness and unsteadiness on his feet. He felt like he was going to fall and decided to come into the ER. In the ER, he was noted to be tachycardic and in atrial fibrillation. He was given IV Lasix as well as IV Lopressor. He was then given IV Cardizem and started on a diltiazem infusion. He was admitted to the hospitalist service. He is currently on an IV diltiazem infusion at 10 mg per hour and his heart rate is approximately 120. He feels slightly better but still generally weak. He is experiencing palpitations. He has had no syncope or presyncope. He has had no chest discomfort. PAST MEDICAL HISTORY: 1. Paroxysmal atrial fibrillation, currently managed with amiodarone and Coreg as well as anticoagulation with warfarin. 2. Ischemic cardiomyopathy. 3. Heart failure with reduced ejection fraction. 4. Coronary heart disease. 5. Prior CABG. 6. Hypertension. 7. Chronic cellulitis. MEDICATIONS: Reviewed per medical record include amiodarone 400 b.i.d., Coreg 25 b.i.d., and Coumadin. FAMILY HISTORY: Noncontributory. Consultation Report [place] [id number] [place]. [address] NAME: BALWINDER COLORADO : 57 STATUS : ADM IN PAT#: [id number] AGE: 61 ADM/REG DATE : 07/15/16 MR#: [id number] REPORT SERV DATE: 07/15/16 DICTATED BY: JAYCOB ALMAGUER DATE: 07/15/16 REPORT STATUS : Draft TRANSCRIBED BY: FELICIA DATE: 07/15/16 SOCIAL HISTORY: The patient lives with his father currently. He is single. He is a lifelong nonsmoker. He does not use alcohol or tobacco. REVIEW OF SYSTEMS: Per HPI. Otherwise, negative. PHYSICAL EXAMINATION: VITAL SIGNS: Blood pressure 144/78, temperature 97.5, pulse 120s, respiratory rate 22, and 94% on room air. Weight 135 kg. GENERAL: Obese male, able to speak in full sentences. Speech is nonlabored. HEENT: Sclerae anicteric. Mucous membranes are moist. NECK: Supple. Unable to appreciate JVD. CARDIOVASCULAR: Irregular S1, S2. Tachycardic. No murmurs appreciated. PULMONARY: Diminished inspiratory effort. Clear bilaterally without wheezes or rales. ABDOMEN: Soft, nondistended, nontender. EXTREMITIES: Warm. Trace edema. Erythema along the margins of dressings that extend from the ankles to the mid calf. LABORATORY DATA: Labs reviewed, notable for WBC of 8.8, hemoglobin 10.6, hematocrit 36.0, platelets 260. Sodium 142, potassium 3.3, chloride 103, bicarb 32, BUN 23, creatinine 1.2, glucose 134, calcium 8.4. BNP 1558. Lactate 1.1. EKG is currently not on the chart. Telemetry demonstrates irregular tachycardia, most consistent with atrial fibrillation. IMPRESSION/RECOMMENDATIONS: 1. Atrial fibrillation with tachycardia, recurrent. 2. Heart failure with reduced ejection fraction, acute/chronic. 3. Ischemic cardiomyopathy. 4. Coronary heart disease. 5. Cellulitis, on antibiotics. The patient has been on Coreg 25 twice daily which does not appear to be adequately controlling his heart rate. He only recently started amiodarone and estimates approximately five days on this medication. I would favor continuing both these medications. I agree with initial treatment with diltiazem for rate control. This may be titrated to achieve better rate control with transition to oral therapy thereafter. It would be reasonable to repeat cardioversion early next week if the patient does not spontaneously convert, as it does not sound that the patient has been adequately treated with antiarrhythmics with amiodarone post discharge. Alternatively, a rate control strategy with Coreg and diltiazem could be used. Recommend continuing Coumadin and adjusting based on INR which is pending. Thank you for the consultation. We will follow with you. Consultation Report [address] [place]. [address] NAME: BALWINDER COLORADO : 57 STATUS : ADM IN [facility]#: [id number] AGE: 61 ADM/REG DATE : 07/15/16 MR#: [id number] REPORT SERV DATE: 07/15/16 DICTATED BY: JAYCOB ALMAGUER DATE: 07/15/16 REPORT STATUS : Draft TRANSCRIBED BY: FELICIA DATE: 07/15/16 LUIZ/FELICIA Jaycob Almaguer MD / [id number] CC: MD Cesar Cavazos M.D.
[2016-07-15 06:57] LABS: BASOPHILS 0.2 %; BASOPHILS ABSOLUTE 0.02 10/3/uL (0.0-0.16); EOSINOPHILS 2.6 %; EOSINOPHILS ABSOLUTE 0.23 10/3/uL (0.0-0.53); ER CBC TAT 0 Hrs 09 Mins; HEMOGLOBIN 10.6 g/dL (13.6-17.8); IMMATURE GRANULOCYTES 0.7 %; IMMATURE GRANULOCYTES ABSOLUTE 0.06 10/3/uL (0.0-0.11); LYMPHOCYTES 5.9 %; LYMPHOCYTES ABSOLUTE 0.52 10/3/uL (0.67-4.30); MANUAL DIFF NO %; MEAN CORPUS HGB CONC 29.4 g/dL (32.0-36.0); MEAN CORPUSCULAR VOLUME 91.6 fL (80-100); MEAN PLATELET VOLUME 9.3 fL (9.2-13.0); MONOCYTES 10.6 %; MONOCYTES ABSOLUTE 0.93 10/3/uL (0.21-1.20); NEUTROPHILS ABSOLUTE 7.04 10/3/uL (2.02-8.40); PLATELET COUNT 270 10/3/uL (150-400); RBC DISTRIBUTION WIDTH 16.3 % (12.0-16.0); RED CELL COUNT 3.93 10/6/uL (4.7-6.1); WHITE BLOOD CELLS 8.8 10/3/uL (4.5-10.5)
[2016-07-15 07:07] LABS: BUN (BLOOD UREA NITROGEN) 24 MG/DL (6-23); CALCIUM, SERUM 8.4 MG/DL (8.5-10.4); CHLORIDE, SERUM 103 MMOL/L (96-112); CO2 (CARBON DIOXIDE) 32 MMOL/L (24-34); CREATININE 1.19 MG/DL (0.70-1.30); GFR AFRICAN AMERICAN 76 ML/MIN (>=60); GFR NON AFRICAN AMERICAN 66 ML/MIN (>=60); GLUCOSE, SERUM 134 MG/DL (60-99); POTASSIUM, SERUM 3.3 MMOL/L (3.5-5.3); SODIUM, SERUM 142 MMOL/L (135-148)
[~2016-07-15 07:13] MED LIST changes: +APRES25 PO; +DEMA20 PO; +ISORDIL10 PO; +KLOR-CON 1010 MEQ PO; +L80 PO; +PACERONE400 MG PO; +ROCEPH IV; +SILVADENE CREAM PO; +ZESTRIL5 MG PO
[2016-07-15 07:21] LABS: LACTATE 1.1 MMOL/L (0.3-2.4)
[2016-07-15] MEDS ORDERED: DEMA20 PO (09:30)
[2016-07-15] MEDS ORDERED: TYLENOL PM PO (09:31)
[2016-07-15] MEDS ORDERED: AFRIN15 NAS (09:32)
[2016-07-15 16:55] LABS: PROTIME (NOT ORD) 22.2 SEC (12.0-14.5)
[2016-07-16 07:46] LABS: INTERNATIONAL NORMAL RATI 1.9 UNITS (-); PROTIME (NOT ORD) 21.3 SEC (12.0-14.5)
[2016-07-16 07:51] LABS: CALCIUM, SERUM 8.3 MG/DL (8.5-10.4); CHLORIDE, SERUM 102 MMOL/L (96-112); CO2 (CARBON DIOXIDE) 30 MMOL/L (24-34); CREATININE 0.86 MG/DL (0.70-1.30); GFR AFRICAN AMERICAN 109 ML/MIN (>=60); GFR NON AFRICAN AMERICAN 94 ML/MIN (>=60); GLUCOSE, SERUM 137 MG/DL (60-99); POTASSIUM, SERUM 3.2 MMOL/L (3.5-5.3); SODIUM, SERUM 142 MMOL/L (135-148)
[2016-07-16 07:52] LABS: BUN (BLOOD UREA NITROGEN) 19 MG/DL (6-23)
[2016-07-17 04:32] LABS: BE (BASE EXCESS) 7.3 MEQ/L (0 +/- 2.5); CARBOXYHEMOGLOBIN 0.9 % (0-3); DEVICE NRB; HCO3 (ACTUAL BICARBONATE) 35.5 MEQ/L (23-27); HEMOBLOGIN CONTENT 12.2 G/DL (14-18); INSTRUMENT SERIAL # 35151; METHEMOGLOBIN 0.4 % (0-3); O2 CONTENT 16.2 VOL% (18-24); OPERATOR ID 33214; PCO2 (CO2 TENSION) 70 MMHG (35-45); PO2 (O2 TENSION) 85 MMHG (79-93); SAMPLE Arterial; pH 7.33 (7.37-7.43)
[2016-07-17 07:58] LABS: ALKALINE PHOSPHATASE 112 U/L (45-117); CALCIUM, SERUM 8.1 MG/DL (8.5-10.4); CHLORIDE, SERUM 99 MMOL/L (96-112); CO2 (CARBON DIOXIDE) 33 MMOL/L (24-34); HDL CHOLESTEROL 45 MG/DL (> 39); SGOT(AST) 15 U/L (5-40); SGPT(ALT) 13 U/L (5-65); SODIUM, SERUM 140 MMOL/L (135-148); TOTAL PROTEIN 7.4 G/DL (6.0-8.5)
[2016-07-17 08:00] LABS: A/G RATIO 0.6 (0.7-1.9); ALBUMIN 2.9 G/DL (3.5-5.0); BUN (BLOOD UREA NITROGEN) 29 MG/DL (6-23); CHOL/HDL RATIO(NOT ORDER) 3.5 (0-5); CHOLESTEROL 158 MG/DL (< 200); CREATININE 1.73 MG/DL (0.70-1.30); GFR AFRICAN AMERICAN 49 ML/MIN (>=60); GFR NON AFRICAN AMERICAN 42 ML/MIN (>=60); GLOBULIN 4.5 G/DL (2.5-4.1); GLUCOSE, SERUM 181 MG/DL (60-99); LDL CHOLESTEROL 88 MG/DL (< 130); NON-HDL CHOLESTEROL 113 MG/DL (< 160); POTASSIUM, SERUM 4.3 MMOL/L (3.5-5.3); TOTAL BILIRUBIN 0.7 MG/DL (0-1.2); TRIGLYCERIDE 127 MG/DL (< 150)
[2016-07-17 08:02] LABS: BASOPHILS 0.1 %; BASOPHILS ABSOLUTE 0.02 10/3/uL (0.0-0.16); EOSINOPHILS 0.3 %; EOSINOPHILS ABSOLUTE 0.05 10/3/uL (0.0-0.53); HEMOGLOBIN 11.6 g/dL (13.6-17.8); IMMATURE GRANULOCYTES 1.2 %; IMMATURE GRANULOCYTES ABSOLUTE 0.23 10/3/uL (0.0-0.11); INTERNATIONAL NORMAL RATI 1.9 UNITS (-); LYMPHOCYTES 5.1 %; LYMPHOCYTES ABSOLUTE 0.95 10/3/uL (0.67-4.30); MEAN CORPUS HGB CONC 29.7 g/dL (32.0-36.0); MEAN CORPUSCULAR HEMOGLOB 28.1 pg (26.0-34.0); MEAN PLATELET VOLUME 9.5 fL (9.2-13.0); MONOCYTES 4.2 %; MONOCYTES ABSOLUTE 0.78 10/3/uL (0.21-1.20); NEUTROPHILS 89.1 %; NEUTROPHILS ABSOLUTE 16.64 10/3/uL (2.02-8.40); PROTIME (NOT ORD) 21.8 SEC (12.0-14.5); RBC DISTRIBUTION WIDTH 16.4 % (12.0-16.0); RED CELL COUNT 4.13 10/6/uL (4.7-6.1)
[2016-07-17 08:10] LABS: MANUAL DIFF NO %; MEAN CORPUSCULAR VOLUME 94.4 fL (80-100); PLATELET COUNT 356 10/3/uL (150-400); WHITE BLOOD CELLS 18.7 10/3/uL (4.5-10.5)
== END 2016-07-17 10:46 | disposition expired | DRG 308 ==
LOC: ER 07:13 → 7NO 11:00
PROVIDERS: Emergency Medicine; Hospitalist; Internal Medicine
DX: I48.0 Paroxysmal atrial fibrillation (principal); I50.23 Acute on chronic systolic (congestive) heart failure; I46.9 Cardiac arrest, cause unspecified; L03.115 Cellulitis of right lower limb; J96.11 Chronic respiratory failure with hypoxia; L03.116 Cellulitis of left lower limb; Z68.42 Body mass index [BMI] 45.0-49.9, adult; L97.919 Non-pressure chronic ulcer of unspecified part of right lower leg with unspecified severity; J96.12 Chronic respiratory failure with hypercapnia; L97.929 Non-pressure chronic ulcer of unspecified part of left lower leg with unspecified severity; E66.01 Morbid (severe) obesity due to excess calories; I11.0 Hypertensive heart disease with heart failure; G47.33 Obstructive sleep apnea (adult) (pediatric); I87.2 Venous insufficiency (chronic) (peripheral); Z91.14 Patient's other noncompliance with medication regimen; I25.10 Atherosclerotic heart disease of native coronary artery without angina pectoris; Z95.1 Presence of aortocoronary bypass graft; I25.5 Ischemic cardiomyopathy; Z51.5 Encounter for palliative care; Z79.01 Long term (current) use of anticoagulants; Z66 Do not resuscitate; E78.5 Hyperlipidemia, unspecified
CPT/HCPCS: 31720; 80048; 80053; 80061; 82330; 82803; 82805; 82947; 82962; 83605; 83880; 84132; 84295; 85014; 85025; 85610; 87040; 92950; 93005; 94660; 96365; 96375; 99285; A9270-GY; J0360; J0690